=== PATIENT | female | born 1995 | race Two or more races ===

== ENCOUNTER 2020-07-15 19:33 | Emergency (ER) | payer OTHER ==
[~2020-07-15] VITALS: Ht 167.6 cm; Wt 84.8 kg
[2020-07-15] MEDS ORDERED: LEVOTHYROXINE25 MCG PO (19:59)
== END 2020-07-15 23:57 | disposition home or self-care (01) ==
LOC: ER 19:33
DX: R10.84 Generalized abdominal pain (principal); R07.89 Other chest pain